=== PATIENT | female | born 1975 | race American Indian/Alaskan Native ===

== ENCOUNTER 2017-05-12 14:40 | Emergency (ER) | payer OTHER ==
[~2017-05-12] VITALS: Ht 157.5 cm; Wt 70.8 kg
[~2017-05-12 14:40] MED LIST: AMITRIPTYLINE H10 MG PO; MECLIZINE HCL25 MG PO; MELOXICAM15 MG PO; PERCOCET 5-3251 EACH PO; PROMETHAZINE HC25 M1 PO; ZOFRAN4 MG PO
[2017-05-12] MEDS ORDERED: PEPTO-BISM262 MG/15 PO (15:01)
[2017-05-12] MEDS ORDERED: ZOFRAN ODT4 MG PO (16:01)
== END 2017-05-12 16:26 | disposition home or self-care (01) ==
LOC: ED 14:40
DX: R10.9 Unspecified abdominal pain (principal); F10.20 Alcohol dependence, uncomplicated; R11.2 Nausea with vomiting, unspecified; Z91.011 Allergy to milk products; Z91.018 Allergy to other foods
CPT/HCPCS: 80053; 81001; 82150; 83690; 84703; 85025; 96361; 96374; 96375; 99283; J1885; J2405; J7030

== ENCOUNTER 2018-11-05 15:41 | Emergency (ER) | payer OTHER ==
[~2018-11-05] VITALS: Ht 157.5 cm; Wt 74.8 kg
[~2018-11-05 15:41] MED LIST changes: +PEPTO-BISM262 MG/15 PO; +ZOFRAN ODT4 MG PO
--- OUTSIDE RECORDS SUMMARY | 2018-11-05 15:46 | XMS ---
PreManage Notification: CAROLEE DIAZ Security Manager Of Employee Relations Events No recent Security Events currently on file CRITERIA MET - 6 ED Visits in 6 Months CARE PROVIDERS [facility] Primary Care Current PHONE: Unknown Primary Care Primary Care Current PHONE: Unknown [facility] Primary Care Current M-Audio PHONE: Unknown Jose Luis has no Care Guidelines for this patient. E.D. VISIT COUNT (12 MO.) 9 Carlos Awan TOTAL 10 NOTE: Visits indicate total known visits. ED/UCC VISIT TRACKING (12 MO.) 11/05/2018 15:43 [place]IC [place] TYPE: Emergency COMPLAINT: - ABD PAIN 08/02/2018 14:50 Carlos CERNA TYPE: Emergency DIAGNOSES: - Epigastric pain - abd pain - Nausea with vomiting, unspecified 08/01/2018 00:41 Carlos [place] TYPE: Emergency DIAGNOSES: - Unspecified abdominal pain - Other chronic pain - abd pain - Nausea with vomiting, unspecified 07/30/2018 18:59 Carlos [place] TYPE: Emergency DIAGNOSES: - Alcohol induced acute pancreatitis without necrosis or infection - ABD PAIN 07/29/2018 11:41 Carlos [place] TYPE: Emergency DIAGNOSES: - abd pain - Alcohol induced acute pancreatitis without necrosis or infection 07/29/2018 07:18 Carlos CERNA TYPE: Emergency DIAGNOSES: - Alcohol abuse, uncomplicated - Alcohol induced acute pancreatitis without necrosis or infection - ABD PAIN 05/25/2018 16:53 Legloni [place] TYPE: Emergency DIAGNOSES: - Nausea with vomiting, unspecified - Abdominal Pain - Alcohol abuse, uncomplicated 05/06/2018 22:06 Legloni [place] TYPE: Emergency DIAGNOSES: - Epigastric pain - ABD pain / N/V/D - Alcohol use, unspecified with intoxication, uncomplicated 04/10/2018 13:05 Legloni [place] TYPE: Emergency DIAGNOSES: - Epigastric pain - Nausea with vomiting, unspecified - Elevated blood-pressure reading, without diagnosis of hypertension - abd pain 03/15/2018 10:07 Legloni [place] TYPE: Emergency DIAGNOSES: - Epigastric pain - Vomiting, unspecified - Diarrhea, unspecified - abd pain INPATIENT VISIT TRACKING (12 MO.) No inpatient visits to display in this time frame [email or web address]
[2018-11-05] MEDS ORDERED: PEPCID20 MG PO (15:47)
[2018-11-05] MEDS ORDERED: FAMOTIDINE20 MG PO (18:32)
[2018-11-05] MEDS ORDERED: ZOFRAN4 MG SL (18:32)
== END 2018-11-05 18:52 | disposition home or self-care (01) ==
LOC: ED 15:41
DX: K29.20 Alcoholic gastritis without bleeding (principal); Z91.018 Allergy to other foods; Z91.011 Allergy to milk products; Z88.8 Allergy status to other drugs, medicaments and biological substances
CPT/HCPCS: 80053; 81001; 83690; 84703; 85025; 99284; G0480

== ENCOUNTER 2018-11-14 11:31 | Emergency (ER) | payer OTHER ==
[~2018-11-14] VITALS: Ht 157.5 cm; Wt 74.8 kg
[~2018-11-14 11:31] MED LIST changes: +FAMOTIDINE20 MG PO; +PEPCID20 MG PO; +ZOFRAN4 MG SL
--- OUTSIDE RECORDS SUMMARY | 2018-11-14 11:34 | XMS ---
PreManage Notification: CAROLEE DIAZ Security Book Publisher Events No recent Security Events currently on file CRITERIA MET - 6 ED Visits in 6 Months - [facility] - Has Care Guidelines - [facility] - 2 Visits in 30 Days CARE PROVIDERS JESSICA MYERS Nurse Practitioner 11/08/2018-Current PHONE: [phone] [facility] Primary Care Current PHONE: Unknown Primary Care Primary Care Current PHONE: Unknown [facility] Primary [facility] PHONE: Unknown Jose Luis has no Care Guidelines for this patient. Care History Medical/Surgical 11/08/2018 [facility] \T\middot;\T\nbsp; PATIENT IS A [employer] MEMBER. \T\middot;\T\nbsp; PLEASE REFER PATIENT TO [facility] FOR NON EMERGENT MEDICAL NEEDS. \T\middot;\ T\nbsp; [facility] CAN SEE PATIENTS SAME DAY FOR APTS IF PATIENT CALLS FIRST THING IN THE MORNING. E.D. VISIT COUNT (12 MO.) [address] [facility]. TOTAL 11 NOTE: Visits indicate total known visits. ED/UCC VISIT TRACKING (12 MO.) 11/14/2018 11:32 AR[facility] [place] TYPE: Emergency COMPLAINT: - ABD PAIN 11/05/2018 15:43 ARIC [place] TYPE: Emergency COMPLAINT: - ABD PAIN DIAGNOSES: - Alcoholic gastritis without bleeding - Allergy to other foods - Allergy to milk products - Epigastric pain - Allergy status to other drugs, medicaments and biological substances status 08/02/2018 14:50 Carlos CERNA TYPE: Emergency DIAGNOSES: - Epigastric pain - abd pain - Nausea with vomiting, unspecified 08/01/2018 00:41 Carlos CERNA TYPE: Emergency DIAGNOSES: - Unspecified abdominal pain - Other chronic pain - abd pain - Nausea with vomiting, unspecified 07/30/2018 18:59 Carlos [place] TYPE: Emergency DIAGNOSES: - Alcohol induced acute pancreatitis without necrosis or infection - ABD PAIN 07/29/2018 11:41 Carlos [place] TYPE: Emergency DIAGNOSES: - abd pain - Alcohol induced acute pancreatitis without necrosis or infection 07/29/2018 07:18 Carlos [place] TYPE: Emergency DIAGNOSES: - Alcohol abuse, uncomplicated - Alcohol induced acute pancreatitis without necrosis or infection - ABD PAIN 05/25/2018 16:53 Carlos [place] TYPE: Emergency DIAGNOSES: - Nausea with vomiting, unspecified - Abdominal Pain - Alcohol abuse, uncomplicated 05/06/2018 22:06 Carlos [place] TYPE: Emergency DIAGNOSES: - Epigastric pain - ABD pain / N/V/D - Alcohol use, unspecified with intoxication, uncomplicated 04/10/2018 13:05 Carlos [place] TYPE: Emergency DIAGNOSES: - Epigastric pain - Nausea with vomiting, unspecified - Elevated blood-pressure reading, without diagnosis of hypertension - abd pain 03/15/2018 10:07 Carlos [place] TYPE: Emergency DIAGNOSES: - Epigastric pain - Vomiting, unspecified - Diarrhea, unspecified - abd pain INPATIENT VISIT TRACKING (12 MO.) No inpatient visits to display in this time frame [email or web address]
[2018-11-14] MEDS ORDERED: ULTRAM50 MG PO (14:06)
== END 2018-11-14 14:15 | disposition home or self-care (01) ==
LOC: ED 11:31
DX: R10.13 Epigastric pain (principal); Z88.8 Allergy status to other drugs, medicaments and biological substances; Z91.018 Allergy to other foods; Z91.011 Allergy to milk products
CPT/HCPCS: 36415; 80053; 83690; 85025; 96361; 96374; 96375; 99284-25; J1200; J1885; J7030

== ENCOUNTER 2022-08-12 07:07 | Emergency (ER) | payer OTHER ==
[~2022-08-12] VITALS: Ht 157.5 cm; Wt 74.8 kg
[~2022-08-12 07:07] MED LIST changes: +ULTRAM50 MG PO
[2022-08-12] MEDS ORDERED: LISINOPRIL5 MG PO (07:17)
[2022-08-12] MEDS ORDERED: LORAZEPAM0.5 MG PO (07:30)
[2022-08-12] MEDS ORDERED: NAPROSYN500 MG PO (07:30)
[2022-08-12] MEDS ORDERED: LIDODERM1 EACH TOP (07:30)
== END 2022-08-12 07:45 | disposition home or self-care (01) ==
LOC: ED 07:07
DX: S29.012A Strain of muscle and tendon of back wall of thorax, initial encounter (principal); X58.XXXA Exposure to other specified factors, initial encounter; Z88.8 Allergy status to other drugs, medicaments and biological substances; Z91.048 Other nonmedicinal substance allergy status; Z91.011 Allergy to milk products; Z79.899 Other long term (current) drug therapy
CPT/HCPCS: 90471; 90715; 96372; 99283-25; J1885

== ENCOUNTER 2022-08-31 21:07 | Emergency (ER) | payer OTHER ==
[~2022-08-31] VITALS: Ht 157.5 cm; Wt 74.8 kg
[~2022-08-31 21:07] MED LIST changes: +LIDODERM1 EACH TOP; +LISINOPRIL5 MG PO; +LORAZEPAM0.5 MG PO; +NAPROSYN500 MG PO
--- OUTSIDE RECORDS SUMMARY | 2022-08-31 21:10 | XMS ---
PreManage Notification: CAROLEE DIAZ Security Inside Contractor Sales Events No recent Security Events currently on file CRITERIA MET - [facility] - 2 Visits in 30 Days CARE PROVIDERS JESSICA MYERS Nurse Practitioner 11/08/2018-Current PHONE: [phone] Jose Luis has no Care Guidelines for this patient. Care History Medical/Surgical 11/08/2018 [facility] \T\middot;\T\nbsp; PATIENT IS A [employer] MEMBER. \T\middot;\T\nbsp; PLEASE REFER PATIENT TO [facility] FOR NON EMERGENT MEDICAL NEEDS. \T\middot;\ T\nbsp; [facility] CAN SEE PATIENTS SAME DAY FOR APTS IF PATIENT CALLS FIRST THING IN THE MORNING. E.D. VISIT COUNT (12 MO.) 1 [facility] 1 [facility] 2 [facility] TOTAL 4 NOTE: Visits indicate total known visits. ED/UCC VISIT TRACKING (12 MO.) 08/31/2022 21:08 ARIC [place] TYPE: Emergency COMPLAINT: - SHOULDER PAIN 08/12/2022 07:08 ARIC [place] TYPE: Emergency COMPLAINT: - BACK PAIN DIAGNOSES: - Exposure to other specified factors, initial encounter - Other nonmedicinal substance allergy status - Other extermination supervisor (current) drug therapy - Allergy status to other drugs, medicaments and biological substances - Allergy to milk products - Strain of muscle and tendon of back wall of thorax, initial encounter 05/27/2022 04:00 [facility] TYPE: Emergency DIAGNOSES: - Unspecified abdominal pain - Left Flank pain - Flank Pain - Medic 471 - MEDIC 01/11/2022 20:32 [facility] [place] TYPE: Emergency DIAGNOSES: - Ankle Injury - Sprain of other ligament of left ankle, initial encounter - Sprain of other ligament of right ankle, initial encounter INPATIENT VISIT TRACKING (12 MO.) No inpatient visits to display in this time frame [email or web address]
[2022-08-31] MEDS ORDERED: TRAZODONE HCL50 MG PO (21:17)
[2022-08-31] MEDS ORDERED: METRONIDAZOLE500 MG PO (21:18)
== END 2022-08-31 22:45 | disposition home or self-care (01) ==
LOC: ED 21:07
DX: S46.911A Strain of unspecified muscle, fascia and tendon at shoulder and upper arm level, right arm, initial encounter (principal); X58.XXXA Exposure to other specified factors, initial encounter; Z88.8 Allergy status to other drugs, medicaments and biological substances; Z91.011 Allergy to milk products; Z91.018 Allergy to other foods; Z79.899 Other long term (current) drug therapy
CPT/HCPCS: 73030; 99283-25

== ENCOUNTER 2022-10-30 10:06 | Emergency (ER) | payer OTHER ==
[~2022-10-30] VITALS: Ht 157.5 cm; Wt 74.8 kg
[~2022-10-30 10:06] MED LIST changes: +METRONIDAZOLE500 MG PO; +TRAZODONE HCL50 MG PO
[2022-10-30] MEDS ORDERED: CARAFATE1 GM PO (11:27)
[2022-10-30] MEDS ORDERED: PROTONIX40 MG PO (11:27)
[2022-10-30 11:49] VITALS: BP 141/78
== END 2022-10-30 11:51 | disposition home or self-care (01) ==
LOC: ED 10:06
DX: K29.70 Gastritis, unspecified, without bleeding (principal); Z88.8 Allergy status to other drugs, medicaments and biological substances; Z91.011 Allergy to milk products; Z91.018 Allergy to other foods; Z79.899 Other long term (current) drug therapy
CPT/HCPCS: 36415; 80053; 81003; 83690; 84703; 85025; 96360; 99284-25; J7121